=== PATIENT | male | born 2005 | race Hispanic/Latino ===

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

== ENCOUNTER 2024-07-03 13:25 | Emergency (ER) | payer BC, MEDICAID ==
[~2024-07-03] VITALS: Ht 144.8 cm; Wt 66.5 kg
[~2024-07-03 13:25] MED LIST changes: +CLOB10TA4 PO; +CLON1TAB23 PO; +DIVA-78 PO; -DIVA250T4 PO; -LEVE1000 PO; +LEVE750T10 PO; -ZONI100C87 PO
[2024-07-03 14:09] LABS: RAPID GROUP A STREP negative (NEGATIVE)
[2024-07-03 14:15] LABS: SARS-CoV-2, RNA, NAAT NEGATIVE SARS CoV-2 (NEGATIVE)
[2024-07-03 14:18] LABS: INFLUENZA TYPE A Negative For Type A (NEGATIVE); INFLUENZA TYPE B Negative For Type B (NEGATIVE)
--- NOTE | 2024-07-03 14:37 | ERN ---
ED Note History of Present Illness Stated Complaint: COUGH Chief Complaint: Cough Time Seen by MD: 13:33 Time Seen by Midlevel: 13:36 Dictation: 19-year-old male with a history of cerebral palsy and seizures brought in by mother for complaints of cough for one month. Mother states he has been taken to the PCP with a told him it was a viral. Denies having any fevers, nausea or vomiting. Allergies: Coded Allergies: No Known Drug Allergies (Unverified Allergy, Unknown, 08/11/22) Home Meds Reported Medications Divalproex Sodium (Divalproex Sodium) 500 Mg Tablet.dr, 1 TAB PO BID 05/13/23 Clonazepam (Clonazepam) 1 Mg Tab.rapdis, 1 TAB PO BID PRN for seizure 05/13/23 Clobazam (Clobazam) 10 Mg Tablet, 5 MG PO DAILY 05/13/23 Levetiracetam (Levetiracetam) 750 Mg Tablet, 2 TAB PO BID 05/13/23 Past Medical History Past Medical History: Seizure, Other Additional Past Medical Hx: CEREBRAL PALSY Surgical History: Other Surgical History Other: KNEE SX (2018) Family History: Negative Social History: Negative, Lives with family Review of System Dictation Constitutional: Negative for fever,chills, and weight loss Eyes: Negative for injury, pain,redness, and discharge ENT: Negative for injury,pain or swelling Cardiovascular: Negative for chest pain, palpitations, and edema Respiratory: Negative for shortness a breath, complaining of cough Abdomen/GI: Negative for abdominal pain, nausea, vomiting, diarrhea, and constipation Back: Negative for injury and pain : Negative for injury, bleeding and discharge MS/Extremity: Negative for injury and deformity Skin: Negative for rash, and discoloration Neuro: Negative for headache, weakness, numbness, tingling, and seizure Psych: Negative for suicide ideation, homicidal ideation, and hallucinations Review of Systems: was completed Initial Vital Sign VS Vital Signs Date Time Temp Pulse Resp B/P (MAP) Pulse Ox O2 Delivery O2 Flow Rate FiO2 07/03/24 13:44 98.2 82 18 111/75 96 Room Air 0 07/03/24 14:14 21 Physical Exam Dictation General: awake, alert, NAD Head/Face: Normocephalic, atraumatic Eyes: PERRL, EOMI, vision at baseline ENT: oral cavity clear, TMs clear, no signs of infection Neck: Trachea midline, supple, no nuchal rigidity Cardiovascular: RRR, normal S1/S2, No MRGs, no JVD Respiratory: CTAB, no respiratory distress, No rales or wheezes Abdomen: Soft, non-tender, non-distended, normal bowel sounds, no guarding or rebound. Skin: Warm, dry, normal turgor, no rash MS/Extremity: Pulses equal, no cyanosis, neurovascular intact, FROM Neuro: COAx4, GCS 15, strength 5/5, CN 2-12 intact, normal cerebellar exam, normal gait, Psych: Normal behavior, mood, and affect normal Results (Laboratory/Radiology) Laboratory/Radiology Laboratory Tests Test 07/03/24 13:51 Influenza Type A Antigen Negative For Type A Influenza Type B Antigen Negative For Type B SARS-CoV-2, RNA, NAAT NEGATIVE SARS CoV-2 Group A Streptococcus Rapid negative (NEGATIVE) Labs Reviewed?: Yes X-RAY Comment: [address] [address] IMAGING REPORT Signed PATIENT: MARLIN VALERIO MR#: [id number] : 2005 SEX: M AGE: 19 LOCATION: [facility] ORDER [id number] STATUS: [facility] REPORT#: [id number] SERVICE 1346 REASON: cough ORDERING PHYSICIAN: ARABELLA CHISHOLM NP PROCEDURE: CXR1VW - CHEST 1VW CHEST 1VW CLINICAL HISTORY: cough COMPARISON: 05/12/2023 TECHNIQUE: Single view of the chest was obtained. FINDINGS: There is mild bilateral lower lobe atelectasis or infiltrate. The cardiac size and mediastinum are unremarkable. The bony structures are within normal limits. IMPRESSION: Mild bilateral lower lobe atelectasis or small infiltrates. DICTATED BY: KRYSTEN CANO DO DATE: 07/03/24 1437 ELECTRONICALLY SIGNED BY: KRYSTEN CANO DO DATE: 07/03/24 1444 ED Course ED Course Orders Procedure Category Date Status Time Covid Rna Naat LAB 07/03/24 Complete 13:46 Influenza Type A & B, LAB 07/03/24 Complete Rapid 13:46 Rapid (Group A Strep) LAB 07/03/24 Complete 13:46 Chest 1vw RAD 07/03/24 Resulted 13:46 Benzonatate 100 Mg PHA 07/03/24 Complete Capsule (Tessalon 100 13:47 Current Medications Medications (Trade) Dose Ordered Sig/Girish Route PRN Reason Start Time Stop Time Status Last Admin Dose Admin Benzonatate (Tessalon 100mg Caps) 200 mg ONCE STAT PO 07/03/24 13:47 07/03/24 13:48 DC 07/03/24 15:13 Vital Signs Date Time Temp Pulse Resp B/P (MAP) Pulse Ox O2 Delivery O2 Flow Rate FiO2 07/03/24 14:14 98.2 82 18 111/75 96 Room Air* 0 21 07/03/24 13:44 98.2 82 18 111/75 96 Room Air 0 Medical Decision Making MDM MDM: 19-year-old male with a history of cerebral palsy and seizures brought in by mother for complaints of cough for one month. Mother states he has been taken to the PCP with a told him it was a viral. Denies having any fevers, nausea or vomiting. Serology negative for flu, COVID, strep. X-ray of the chest shows mild bilateral lower lobe atelectasis or small infiltrate. Based on patient's presenting symptoms more than likely this could be pneumonia. We will treat patient with the antibiotics outpatient has a them follow up with PCP. Differential diagnosis: Influenza, COVID, pneumonia, URI Rationale: Tests considered and ordered secondary to shared decision making include: Previous outside records reviewed: Old ER visits. Risk of complication and/or morbidity or mortality of patient management: None Medications-Per medication reconciliation Need for hospitalization: Patient does not meet criteria for hospitalization. Need for emergency major/minor surgery: No There are no social concerns with this patient. Prescription drug management Prescriptions will include symptomatic care Patient's prior external medical records from other ER visits were reviewed by me as indicated. Prior testing and results from previous visits were reviewed. Prior tests were taken into account with medical decision making and resource utilization, independent historian/historians were used to obtain complete medical history. I independently interpreted the test that were performed, results were reviewed by me and considered findings on radiology if ordered. Medical management and examination interpretation discussions were had by me with other qualified healthcare professionals as indicated for the patient's care. DX & DISP Disposition: Discharge Departure Impression: Primary Impression: Pneumonia Condition: Stable Scripts Benzonatate (Tessalon Perles) 100 Mg Cap 200 MG PO BID for cough for 10 Days, #20 CAP 0 Refills Prov: ARABELLA CHISHOLM DIE REPAIR MACHINIST 07/03/24 Azithromycin (Azithromycin) 250 Mg Tablet 1 TAB PO AD for 5 Days, #6 TAB 0 Refills 2 the first day followed by 1 for days 2-5 Prov: ARABELLA CHISHOLM NP 07/03/24 Referrals: ANGELA ZAMORA MD (PCP) Time of Disposition: 16:33 I have reviewed the case, and I agree with, Diagnosis and Plan ARABELLA CHISHOLM NP Jul 03, 2024 14:37
--- NOTE | 2024-07-03 14:44 | HMCIMG ---
CHEST 1VW CLINICAL HISTORY: cough COMPARISON: 05/12/2023 TECHNIQUE: Single view of the chest was obtained. FINDINGS: There is mild bilateral lower lobe atelectasis or infiltrate. The cardiac size and mediastinum are unremarkable. The bony structures are within normal limits. IMPRESSION: Mild bilateral lower lobe atelectasis or small infiltrates.
[2024-07-03] MEDS: BENZONATATE 100 MG CAPSULE PO STA (15:13)
[2024-07-03] MEDS ORDERED: AZIT250T9 PO (16:33)
[2024-07-03 16:34] VITALS: BP 109/69; PULSE 82; RESP 17; TEMP 98; O2SAT 96
[2024-07-03] MEDS ORDERED: BENZ-39 PO (16:34)
== END 2024-07-03 16:41 | disposition home or self-care (01) ==
LOC: EDH 13:25
DX: J18.9 Pneumonia, unspecified organism (principal); Z20.822 Contact with and (suspected) exposure to COVID-19
CPT/HCPCS: 71045; 87635; 87804; 87880; 99283